=== PATIENT | female | born 1990 | race Two or more races ===

== ENCOUNTER 2019-01-06 15:27 | Emergency (ER) | payer SELFPAY ==
[2019-01-06] MEDS ORDERED: Triple Antibiotic 0.94 gm Pkt TP STA (16:12)
[2019-01-06] MEDS ORDERED: Bacitracin pkt 1 gm Pkt TP ONE (16:24)
--- NOTE | 2019-01-06 16:27 | ED Physician Chart ---
ED Chief Complaint/HPI - Patient Information Date Seen:: 01/06/19 Time Seen:: 15:35 Chief Complaint:: Right Leg Injury History of Present Illness:: onset x one hour of an accidental contact type injury to the right leg when an object accidentally fell and hit the pt's right leg one hour [employer]; no report of/ pt denies LOC, ALOC, AMS, H/As, decreased activity, visual or gait changes, weakness, dizziness, paresthesias, vertigo, neck pain, C/P, cough, SOB, Abd. Pain, A/N/V/D/C, fever, chills, bleeding, or urinary s/s; LNMP: 01/03/19; pt denies ; pt's last tetanus shot: > 5 years Allergies:: Allergies Allergy/AdvReac Type Severity Reaction Status Date / Time No Known Allergies Allergy Verified 01/06/19 15:35 Vitals:: Vital Signs - 8 hr 01/06/19 15:36 Temp 98.4 F HR 99 RR 16 BP 132/91 O2 Sat % 99 Historian:: Patient, Family Member Review:: Nurse's Note Reviewed, Old Chart Reviewed ED Review of Systems - Review of Systems General/Constitutional: No fever, No chills, No weight loss, No weakness, No diaphoresis, No edema, No loss of appetite Skin: No skin lesions, No rash, No bruising Head: No headache, No light-headedness Eyes: No loss of vision, No pain, No diplopia ENT: No earache, No nasal drainage, No sore throat, No tinnitus Neck: No neck pain, No swelling, No thyromegaly, No stiffness, No mass noted Cardio Vascular: No chest pain, No palpitations, No PND, No orthopnea, No edema Pulmonary: No SOB, No cough, No sputum, No wheezing GI: No nausea, No vomiting, No diarrhea, No pain, No melena, No hematochezia, No constipation, No hematemesis G/U: No dysuria, No frequency, No hematuria, No nacturia Supervisor Bindery: No vaginal discharge, No abnormal vaginal bleed, No contraction Musculoskeletal: No bone or joint pain, No back pain, No muscle pain Endocrine: No polyuria, No polydipsia Psychiatric: No prior psych history, No depression, No anxiety, No suicidal ideation, No homicidal ideation, No auditory hallucination, No visual hallucination Hematopoietic: No bruising, No lymphadenopathy Allergic/Immuno: No urticaria, No angioedema Neurological: No syncope, No focal symptoms, No weakness, No paresthesia, No headache, No seizure, No dizziness, No confusion, No vertigo ED Past Medical History - Past Medical History Obtainable: Yes Past Medical History: No significant medical hx Family History: None Social History: Non Smoker, No Alcohol, No Drug Use, Single Surgical History: None Psychiatricy History: None Medication: Reviewed Family Medical History - Family Member Mother History Unknown: Yes ED Physical Exam - Physical Examination General/Constitutional: Awake, Well-developed, well-nourished, Alert, No distress, GCS 15, Non-toxic appearing, Ambulatory Head: Atraumatic Eyes: Lids, conjuctiva normal, PERRL, EOMI Skin: Nl inspection, No rash, No skin lesions, No ecchymosis, Well hydrated, No lymphadenopathy Other Skin comments:: + Avulsion type Superficial Laceration at the dorsal proximal lateral right tibia-fibula region of the right leg; no septic joints; + right leg contusion; no joint tenderness; full active ROMs of all joints; no FBs; no ligament instability; DTRs: 2+ bilaterally; Gait: WNL; good motor, tendon, and sensory functions; good NV functions ENMT: External ears, nose nl, TM canals nl, Nasal exam nl, Lips, teeth, gums nl , Oropharynx nl, Tonsils nl Neck: Nontender, Full ROM w/o pain, No JVD, No nuchal rigidity, No bruit, No mass, No stridor Other Neck comments:: supple; no meningeal signs; no cervical tenderness; no bruits Respiratory: Nl effort/Exclusion, Clear to Auscultation, No Wheeze/Rhonchi/Rales Cardio Vascular: RRR, No murmur, gallop, rubs, NL S1 S2, Carotid/Femoral/Distal pulses equal bilaterally GI: No tenderness/rebounding/guarding, No organomegaly, No hernia, Normal BS's, Nondistended, No mass/bruits, No McBurney tenderness, Rectum exam nl Other GI comments:: no pulsatile masses : No CVA tenderness Extremities: No tenderness or effusion, Full ROM, normal strength in all extremities, No edema, Normal digits & nails Other Extremities comments:: as above Neuro/Psych: Alert/oriented, DTR's symmetric, Normal sensory exam, Normal motor strength, Judgement/insight normal, Mood normal, Normal gait, No focal deficits Other Neuro/Psych comments:: no focal signs Misc: Normal back, No paraspinal tenderness ED Labs/Radiology/EKG Results - Radiology Results Comments:: X-Rays: deferred by pt ED Assessment Location:: right leg Laceration Type:: Other (Avulsion) Prep/Irrigation:: Thorough Cleansing and Irrigation with betadine and saline Comments: neosporin ointment and dressing applied Inspection: No dirt/debris, NO FB Comments:: Td 0.5cc IM given Post Procedure/Splint Exam: No Active Bleeding, Full Range of Motion, Neuro/ Vascular Exam Comments:: good NV functions ED Septic Shock - . Is Septic Shock (SBP<90, OR Lactate>4 mmol\L) present?: No - <6hrs of presentation: Vital Signs: Vital Signs - 8 hr 01/06/19 15:36 Temp 98.4 F HR 99 RR 16 BP 132/91 O2 Sat % 99 ED Reassessment (Disposition) - Reassessment Reassessment:: Final BP: 126/86;pt is asymptomatic upon discharge Reassessment Condition:: Improved - Diagnosis Diagnosis:: Right Leg Laceration; Right Leg Contusion; Hypertension; Right Leg Injury - Aftercare/Follow up Instructions Aftercare/Follow-Up Instructions:: Counseled pt regarding lab results/diagnosis & need follow up, Refer to Discharge Instructions, Counseled pt & family regarding lab results/diagnosis & need follow up Notes:: Have Blood Pressure re-checked in one day by PMD Medication Prescribed:: Rx: Keflex 500mg po qid x 10 days; Neosporin Ointment bid and dressings x 14 days; Wound Care Instructions - Patient Disposition Discharge/Transfer:: Home Condition at Disposition:: Stable, Improved (RTER prn if existing s/s reoccur and/or get worse and/or any other new s/s occur; ACIs given for all above Dx; Refer to Vascular Surgeon/Orthopedist/Wet Finisher TERRY; F/U with PMD in one day or as needed; RTER prn if concerned)
== END 2019-01-06 17:00 | disposition home or self-care (01) ==
LOC: ER 15:27
DX: S81.811A Laceration without foreign body, right lower leg, initial encounter (principal); I10 Essential (primary) hypertension; W20.8XXA Other cause of strike by thrown, projected or falling object, initial encounter; Y93.89 Activity, other specified; Y92.89 Other specified places as the place of occurrence of the external cause; Y99.8 Other external cause status
CPT/HCPCS: A4217; Z7502; Z7610